=== PATIENT | male | born 1935 | race Caucasian/White ===

== ENCOUNTER → 2021-05-18 | Outpatient (REF) | payer OTHER ==
[2021-05-18 18:03] LABS: SOURCE, BODY FLUID GLUCOSE RT KNEE
[2021-05-18 18:16] LABS: SOURCE, BODY FLUID RT KNEE; SYNOVIAL FLUID COLOR PINK (COLORLESS)
[2021-05-19 03:47] LABS: CRYSTALS, BODY FLUID NONE SEEN (NONE SEEN); SOURCE, BODY FLUID CRYSTALS RT KNEE
[2021-05-19 10:18] LABS: BODY FLUID RHEUMATOID SCREEN NEGATIVE (NEGATIVE)
[2021-05-19 10:19] LABS: MUCIN CLOT TEST 4+ (4+)
== END ==
LOC: M LAB REF 16:55
PROVIDERS: ATTEND Physician Assistant
DX: M17.11 Unilateral primary osteoarthritis, right knee (principal)

== ENCOUNTER → 2022-06-15 | Outpatient (CLI) | payer MEDICARE | LOC: M SOG 10:48 | PROVIDERS: ATTEND Orthopaedic Surgery Hand Surgery | DX: M25.531 Pain in right wrist (principal) ==

== ENCOUNTER 2022-08-09 06:50 | Day surgery (SDC) | payer MEDICARE ==
[~2022-08-09] VITALS: Ht 172.7 cm; Wt 79.8 kg
[~2022-08-09 06:50] MED LIST: AMLO1TAB24 PO; ATOR40TA75 PO; CYAN100050 PO; JARD1TAB PO; LOSA50TA28 PO; METF500T13 PO
[2022-08-09] MEDS ORDERED: SODIUM BICARBONATE 8.4% INJ 50MEQ 50ML VIAL XX ONE (07:05)
[2022-08-09] MEDS ORDERED: LIDOCAINE W/EPINEPHRINE 1% 20ML VIAL XX ONE (07:05)
[2022-08-09] MEDS ORDERED: ACET-897 PO (07:14)
[2022-08-09] MEDS ORDERED: BACITRACIN OINTMENT 30GM TUBE As Ordered ONE (08:16)
[2022-08-09 09:20] VITALS: BP 148/69
== END 2022-08-09 09:37 | disposition home or self-care (01) ==
LOC: M SDC 06:50
PROVIDERS: ATTEND Orthopaedic Surgery Hand Surgery
DX: G56.01 Carpal tunnel syndrome, right upper limb (principal); I10 Essential (primary) hypertension; E78.5 Hyperlipidemia, unspecified; E11.9 Type 2 diabetes mellitus without complications; Z79.84 Long term (current) use of oral hypoglycemic drugs; Z79.899 Other long term (current) drug therapy